=== PATIENT | male | born 1985 | race Caucasian/White ===

== ENCOUNTER 2020-01-28 11:32 | Emergency (ER) | payer OTHER, SELFPAY ==
[2020-01-28 11:34] VITALS: BP 122/84; PULSE 83; RESP 22; TEMP 38.1; O2SAT 98; BMI 22.4
--- NOTE | 2020-01-28 11:45 | XR_ITS ---
PROCEDURE: XR CHEST 2V CLINICAL HISTORY: FEVER Smoker, sore throat COMPARISON: No exams were available for comparison FINDINGS: The cardiomediastinal silhouette and pulmonary vascularity are within normal limits. The lungs are clear without infiltrates, suspicious nodules, or pleural effusions. There is a mild pectus deformity. No acute bony findings. IMPRESSION: No acute findings. Dictated by: Robby Orosco MD 01/28/2020 12:54 Electronically signed by Robby Orosco MD in [place] 01/28/2020 12:54
--- NOTE | 2020-01-28 11:56 | PC.NURSE ---
Pt returned from rad.
--- NOTE | 2020-01-28 11:56 | PC.NURSE ---
PT HAS RETURNED FROM XRAY AT THIS TIME. LAB STAFF AT BEDSIDE.
[2020-01-28 12:06] LABS: Adenovirus,PCR Not Detected (NotDetected); Bordetella Pertussis Not Detected (NotDetected); Chlamydophila Pneumoniae, PCR Not Detected (NotDetected); Coronavirus 229E Not Detected (NotDetected); Coronavirus NL63 Not Detected (NotDetected); Coronavirus OC43 Not Detected (NotDetected); Coronovirus HKU1,PCR Not Detected (NotDetected); Human Metapneumovirus Not Detected (NotDetected); Influenza A, PCR Not Detected (NotDetected); Influenza AH1, 2009 Not Detected (NotDetected); Influenza AH1, PCR Not Detected (NotDetected); Influenza AH3,PCR Not Detected (NotDetected); Influenza B, PCR Not Detected (NotDetected); Mycoplasma Pneumoniae, PCR Not Detected (NotDetected); Parainfluenza 1, PCR Not Detected (NotDetected); Parainfluenza 2, PCR Not Detected (NotDetected); Parainfluenza 3, PCR Not Detected (NotDetected); Parainfluenza 4, PCR Not Detected (NotDetected); Respiratory Syncytial Virus Not Detected (NotDetected); Rhinovirus/Enterovirus Not Detected (NotDetected)
[2020-01-28 12:20] LABS: Strep Scrn Group A (Rapid) Negative (Negative)
--- NOTE | 2020-01-28 12:59 | PC.NURSE ---
UPDATED PT ON WHEN RESULTS FOR URP, PT REQUESTED BLANKET AND LIGHTS TO BE TURNED FF. NO NEEDS AT THIS TIME
--- NOTE | 2020-01-28 13:51 | PC.NURSE ---
Dr Obrien calling the [facility] nurse at this time.
--- NOTE | 2020-01-28 14:02 | HMH.EDFEV ---
ED Disposition Clinical Impression: Fever of unknown origin, Viral infection, Exposure to SARS-associated coronavirus Disposition: Home, Self-Care Condition on Discharge: Good Instructions: DI for Fever (Symptom) -- Adult Referrals: Provider,Referral, MD [Primary Care Provider] - - Critical Care Critical Care Time: No Attestation: On 01/28/20, the high probability of a clinically significant, sudden or life threatening deterioration of the following system(s) required my full and direct attention, intervention and personal management. The time I documented below is in addition to time spent performing reported procedures but includes the following listed in this critical care notation. Medical Decision Making - Medical Records Medical records reviewed: Yes: I reviewed the patient's medical records. - Shahzad Inquiry Pt receiving controlled substance: No Vital Signs: 01/28/20 11:34 Temperature 100.5 F H Temperature Source Oral Pulse Rate [Right] 83 Respiratory Rate 22 Blood Pressure [Right Arm] 122/84 Blood Pressure Mean [Right Arm] 96 02 Sat by Pulse Oximetry 98 - Lab Data Lab results reviewed: Yes: I reviewed the patient's lab results. Lab Results 01/28/20 11:47: Group A Strep Rapid Negative 01/28/20 11:50: Chlamy pneumoniae PCR Not detected, Adenovirus (PCR) Not detected, B. pertussis DNA (PCR) Not detected, Coronavirus OC43 (PCR) Not detected, Coronavirus HKU1 (PCR) Not detected, Coronavirus 229E (PCR) Not detected, Coronavirus NL63 (PCR) Not detected, Human Metapneumovir PCR Not detected, Influenza A (H1) PCR Not detected, Influ A (H1N1/09) PCR Not detected, Influenza A (H3) PCR Not detected, Influenza Type A (PCR) Not detected, Influenza Type B (PCR) Not detected, M. pneumoniae (PCR) Not detected, Parainfluenza 1 (PCR) Not detected, Parainfluenza 2 (PCR) Not detected, Parainfluenza 3 (PCR) Not detected, Parainfluenza 4 (PCR) Not detected, RSV (PCR) Not detected, Entero/Rhino (PCR) Not detected Orders (Tests/Meds): ED MEDICATIONS Discontinued Medications Generic Name Dose Route Start Last Admin Trade Name Freq PRN Reason Stop Dose Admin Acetaminophen 1,000 mg 01/28/20 12:02 04/22/20 12:03 Tylenol 500mg Tablet PO 01/28/20 12:03 1,000 mg ONCE ONE Administration Ondansetron HCl 4 mg 01/28/20 12:02 01/28/20 12:03 Zofran 4mg Odt SL 01/28/20 12:03 4 mg ONCE ONE Administration ORDERS Category Date Time Status Strep Screen Confirmation Stat Micro 01/28/20 11:47 Received Medical Decision Narrative: Patient's upper respiratory panel came back negative and a strep also came back negative as well given the fact he has been out in the community and had close contact with a previous positive and now is exhibiting symptoms he warrants SARS-CoV-2 testing. Fever HPI - General Chief Complaint: Fever Stated Complaint: high temp, vomiting, sore throat headache Time Seen by Provider: 01/28/20 14:02 Mode of Arrival: Ambulatory Source of Information: Patient Limitations: No Limitations Description of Symptoms (Recalled from ER Triage Doc. by RN): C/O FEVER, BODY ACHES, SORE THROAT AND VOMITING FOR 3 DAYS. - History of Present Illness HPI Narrative: 34-year-old male presents to the ED with a 3-day onset of malaise, fatigue, arthralgias, myalgias, headache, sore throat, loose stools, nausea and mild cough. Patient states that he has been out over the last 3 to 4 weeks going to local stores and to local restaurants picking up food. He states he thought he had a come close contact with some that the test positive when he was picking up food from a local pizza restaurant. He said he knew the patient knew the individual and then he found out on Facebook that 3 days later he had tested positive earlier that day. Patient denies any overt shortness of breath. - Related Data Home Medications Medication Instructions Recorded Confirmed buprenorphine 8 mg-naloxone 2 m
--- NOTE | 2020-01-28 14:20 | PC.NURSE ---
Lab at bedside
[2020-01-28 14:44] VITALS: BP 118/87; PULSE 89; RESP 18; TEMP 37.7; O2SAT 97
[2020-01-29 08:29] LABS: Covid-19 Nasal PCR Sendout Lex NOT DETECTED
--- NOTE | 2020-01-29 11:03 | PC.NURSE ---
notified patient of negative COVID 19 results.
== END 2020-01-28 14:45 | disposition home or self-care (01) ==
PROVIDERS: Emergency Provider Family Medicine
DX: B34.9 Viral infection, unspecified (principal); Z20.828 Contact with and (suspected) exposure to other viral communicable diseases; F17.210 Nicotine dependence, cigarettes, uncomplicated
CPT/HCPCS: 71046; 87430; 87486; 87581; 87633; 87798; 99283; U0003

== ENCOUNTER → 2020-05-16 19:52 | Outpatient (CLI) | payer OTHER, SELFPAY | PROVIDERS: Visit Provider Nurse Practitioner Family | DX: Z03.818 Encounter for observation for suspected exposure to other biological agents ruled out (principal) | CPT/HCPCS: U0003 ==

== ENCOUNTER 2020-10-29 15:54 | Emergency (ER) | payer OTHER, SELFPAY ==
[2020-10-29 16:05] VITALS: BP 123/74; PULSE 69; RESP 17; TEMP 36.8; O2SAT 98; BMI 19.9
--- NOTE | 2020-10-29 16:27 | HMH.EDUTC ---
[facility] [place] Clinical Impression: Exposure to COVID-19 virus Disposition: Home, Self-Care Condition on Discharge: Good Instructions: Preventing the Spread of Coronavirus Discharge Instructions Referrals: PCP,No [Primary Care Provider] - Time of Disposition: 16:28 Medical Decision Making - Shahzad Inquiry Pt receiving controlled substance: No Vital Signs: 10/29/20 16:05 Temperature 98.2 F Temperature Source Oral Pulse Rate [Right Brachial] 69 Respiratory Rate 17 Blood Pressure [Right Arm] 123/74 Blood Pressure Mean [Right Arm] 90 Blood Pressure Source [Right Arm] Automatic Cuff Blood Pressure Position [Right Arm] Sitting 02 Sat by Pulse Oximetry 98 Oxygen Delivery Method Room Air Orders (Tests/Meds): ORDERS Category Date Time Status Covid-[address] Nasal PCR ([facility]) Routine Lab 10/29/20 16:10 Received [facility] [place] - General Stated complaint: wants Covid-19 test has been exposed Time Seen by Provider: 10/29/20 16:27 Mode of Arrival: Ambulatory Source of Information: Patient Limitations: No Limitations Description of Symptoms (Recalled from Triage Doc. by RN): COVID TEST D/T EXPOSURE. C/O FATIGUE HEENT Symptoms (Recalled from RN notes): No Resp Symptoms (Recalled from RN notes): No Skin Symptoms (Recalled from RN notes): No MS Symptoms (Recalled from RN notes): No Functional Status (Recalled from RN notes): WNL - History of Present Illness Provider Complaint: Has been tired for a few days and now girlfriend has symptoms concerning for COVID19. Would like to get tested. No fever, body aches, chills, SOA. Onset (ago): day(s) (3) Relieving factors: none Exacerbating factors: none Associated symptoms: denies other symptoms Treatments prior to arrival: none - Related Data Home Medications Medication Instructions Recorded Confirmed buprenorphine 8 mg-naloxone 2 mg 2 film BUCCAL DAILY 09/03/19 09/03/19 sublingual film Previous Rx's Medication Instructions Recorded polyethylene glycol 3350 17 17 g PO DAILY PRN #119 g 03/24/19 gram/dose oral powder Allergies Allergy/AdvReac Type Severity Reaction Status Date / Time No Known Allergies Allergy Verified 09/03/19 16:40 - Worker's Comp Is this a Worker's Comp case?: No [facility] History - Hepatitis A Screen Drug use history?: No High risk sexual behaviors?: No History of sexually transmitted infection?: No Currently employed?: No Childcare worker?: No Do you have indoor plumbing?: Yes Do you have electricity?: Yes Attestation statement:: This patient has been screened for Hepatitis A risk factors. I have reviewed the patient's past medical history: Yes Medical History: Denies:: Cancer, Diabetes Mellitus Type 1, Diabetes Mellitus Type 2, MRSA Other Surgeries: Yes: No Previous Surgery Amputation: No Fractures: No Comment: Rib surgery. bilateral inguinal hernia repair - Social History Smoking Status: Current every day smoker Tobacco Type: cigarettes # Packs/Day (cigarettes): 1 Alcohol Intake: never Substance Use Type: former substance user, methamphetamine Occupational Status: employed Housing: house Household Members: spouse, children Family Hx:: No significant family history ROS Obtained: Yes All systems reviewed & no additional complaints - Constitutional Constitutional: Reports fatigue, Reports malaise Physical Exam - General General appearance: alert, in no apparent distress - Head Head exam: normocephalic - Eye Eye exam: Present: PERRL - ENT ENT exam: Present: normal oropharynx - Neck Neck exam: Present: full ROM - Respiratory Respiratory exam: Present: normal lung sounds bilaterally - Cardiovascular Cardiovascular exam: Present: regular rate, normal rhythm - Neurological Exam Neurological exam: Present: alert, oriented X3 - Psychiatric Psychiatric exam: Present: normal affect, normal mood - Skin Skin exam: Present: warm, dry, intact
[2020-10-29 16:34] VITALS: BP 123/74; PULSE 69; RESP 17; TEMP 36.8; O2SAT 98
== END 2020-10-29 16:37 | disposition home or self-care (01) ==
PROVIDERS: Emergency Provider Physician Assistant
DX: Z20.822 Contact with and (suspected) exposure to COVID-19 (principal); R53.1 Weakness; F17.210 Nicotine dependence, cigarettes, uncomplicated
CPT/HCPCS: 99202; G0463; U0003

== ENCOUNTER → 2021-05-27 20:00 | Outpatient (CLI) | payer OTHER, SELFPAY | PROVIDERS: Visit Provider Nurse Practitioner Family | DX: Z20.822 Contact with and (suspected) exposure to COVID-19 (principal) | CPT/HCPCS: U0003 ==

== ENCOUNTER → 2021-06-06 23:21 | Outpatient (CLI) | payer OTHER, SELFPAY ==
--- NOTE | 2021-06-07 11:37 | PC.NURSE ---
Notified pt of positive results
== END ==
PROVIDERS: Visit Provider Nurse Practitioner Family
DX: Z11.52 Encounter for screening for COVID-19 (principal); U07.1 COVID-19
CPT/HCPCS: U0003

== ENCOUNTER 2022-01-31 04:51 | Emergency (ER) | payer OTHER, SELFPAY ==
--- NOTE | 2022-01-31 04:50 | ECG_ITS ---
APPROVED REPORT Exam: Resting ECG HR:72 bpm ECG Measurements Heart Rate 72 AXES TX 122 P 67 QRSd 98 QRS 63 QT 376 T 63 QTc 400 Conclusion SINUS RHYTHM INCOMPLETE RIGHT BUNDLE BRANCH BLOCK [90+ ms QRS DURATION, TERMINAL R IN V1/V2, 40+ ms S IN I/aVL/V4/V5/V6] BORDERLINE ECG UNCONFIRMED REPORT Electronically signed by : Margarito Iglesias MD 02/02/2022 08:05:44
[2022-01-31 04:52] VITALS: BP 163/108; PULSE 85; RESP 17; TEMP 36.8; O2SAT 99; BMI 22.4
[2022-01-31 04:55] VITALS: BMI 22.4
--- NOTE | 2022-01-31 04:56 | XR_ITS ---
PROCEDURE INFORMATION: Exam: XR Chest Exam date and time: 01/31/2022 4:59 AM Age: 36 years old Clinical indication: Sternal or substernal pain; Additional info: Cp TECHNIQUE: Imaging protocol: XR of the chest. Views: 2 views. COMPARISON: CR XR CHEST 2V 01/28/2020 11:45 AM FINDINGS: Lungs: Hyperinflated. No consolidation. Pleural spaces: Unremarkable. No pleural effusion. No pneumothorax. Heart/Mediastinum: Unremarkable. No cardiomegaly. Bones/joints: Unremarkable. IMPRESSION: No acute findings.
[2022-01-31 05:08] LABS: Basophils # 0.1 K/mm3 (0-0.2); Basophils % 1.7 % (0.1-2.0); Eosinophils # 0.1 K/mm3 (0.0-0.4); Eosinophils % 1.6 % (0.1-12.0); Hematocrit 46.2 % (42.0-52.0); Hemoglobin 16.2 g/dL (14.1-18.0); Lymphocytes # 2.4 K/mm3 (0.7-4.5); Lymphocytes % 38.6 % (10-50); Mean Corpuscular Hemoglobin 34.6 pg (27.0-31.2); Mean Corpuscular Volume 98.8 fl (80-94); Monocytes # 0.4 K/mm3 (0.1-1.0); Monocytes % 5.8 % (1.7-9.3); Neutrophils # 3.3 K/mm3 (1.8-7.8); Neutrophils % 52.2 % (37.0-80.0); Platelet Count 211 K/mm3 (142-424); Red Blood Count 4.68 M/mm3 (4.60-6.20); Red Cell Distribution Width 12.6 % (11.5-17.5); White Blood Count 6.3 K/mm3 (4.8-10.8)
[2022-01-31 05:13] LABS: Alanine Aminotransferase 35 U/L (12-78); Albumin Level 4.7 g/dl (3.5-5.0); Alkaline Phosphatase 72 U/L (38-126); Anion Gap 10.6 mEq/L (5-15); Aspartate Amino Transferase 47 U/L (17-59); Bilirubin,Direct 0.2 mg/dl (0.0-0.4); Bilirubin,Indirect 0.3 mg/dL (0.0-0.9); Bilirubin,Total 0.5 mg/dl (0.2-1.3); Bilirubin,Unconjugated 0.3 mg/dL (0.0-1.1); Blood Urea Nitrogen 22 mg/dl (9-20); Calcium 9.2 mg/dl (8.4-10.2); Carbon Dioxide 30 mmol/L (22.0-30.0); Chloride 105 mmol/L (98-107); Creatinine Clearance Estimated 126 mL/min (50-200); Estimated Glomerular Filt Rate 128 ml/min (>60); GFR (African American) 154 ML/MIN (>60); Glucose 124 mg/dl (74-100); Potassium 3.6 mmoL/L (3.5-5.1); Sodium 142 mmol/L (136-145); Total Protein,Serum 7.5 g/dl (6.3-8.2)
[2022-01-31 05:18] LABS: C-Reactive Protein 9.4 mg/L (0-4)
[2022-01-31 05:30] VITALS: BP 117/78; PULSE 56; RESP 12; O2SAT 98
[2022-01-31 05:32] LABS: Procalcitonin 0.063 ng/mL (0.0-2.0)
[2022-01-31 05:42] LABS: Erythrocyte Sedimentation Rate 8 mm/hr (0-15); Troponin I < 0.01 ng/ml (0.00-0.034)
--- NOTE | 2022-01-31 05:45 | HMH.EDCP ---
ED Disposition Clinical Impression: Atypical chest pain Disposition: Home, Self-Care Condition on Discharge: Good Instructions: DI for Atypical Chest Pain Additional Instructions: see pcp for follow up Referrals: Provider,Referral, [Primary Care Provider] - - Critical Care Critical Care Time: No Attestation: On 01/31/22, the high probability of a clinically significant, sudden or life threatening deterioration of the following system(s) required my full and direct attention, intervention and personal management. The time I documented below is in addition to time spent performing reported procedures but includes the following listed in this critical care notation. Medical Decision Making - Medical Records Medical records reviewed: Yes: I reviewed the patient's medical records. - Shahzad Inquiry Pt receiving controlled substance: No Vital Signs: 01/31/22 04:52 01/31/22 05:30 01/31/22 06:00 Temperature 98.3 F Temperature Source Oral Pulse Rate 56 L 58 L Pulse Rate [Right] 85 Respiratory Rate 17 12 14 Blood Pressure 117/78 120/84 Blood Pressure [Right Arm] 163/108 H Blood Pressure Mean [Right Arm] 126 Blood Pressure Source [Right Arm] Automatic Cuff 02 Sat by Pulse Oximetry 99 98 98 Oxygen Delivery Method Room Air Room Air Room Air 01/31/22 06:30 01/31/22 07:00 Temperature Temperature Source Pulse Rate 54 L 54 L Pulse Rate [Right] Respiratory Rate 10 L 12 Blood Pressure 112/72 110/82 Blood Pressure [Right Arm] Blood Pressure Mean [Right Arm] Blood Pressure Source [Right Arm] 02 Sat by Pulse Oximetry 98 98 Oxygen Delivery Method Room Air - Lab Data Lab results reviewed: Yes: I reviewed the patient's lab results. Lab Results 01/31/22 04:54: WBC 6.3, RBC 4.68, Hgb 16.2, Hct 46.2, MCV 98.8 H, MCH 34.6 H, MCHC 35.0, RDW 12.6, Plt Count 211, MPV 8.0, Neut % (Auto) 52.2, Lymph % (Auto) 38.6, [place] % (Auto) 5.8, Eos % (Auto) 1.6, Baso % (Auto) 1.7, Neut # (Auto) 3.3, Lymph # (Auto) 2.4, [place] # (Auto) 0.4, Eos # (Auto) 0.1, Baso # (Auto) 0.1, ESR 8 01/31/22 04:54: Sodium 142, Potassium 3.6, Chloride 105, Carbon Dioxide 30, Anion Gap 10.6, BUN 22 H, Creatinine 0.70, Estimated Creat Clear 126, Estimated GFR 128, Est GFR ( Amer) 154, Glucose 124 H, Calcium 9.2, Magnesium 2.0, Total Bilirubin 0.5, Direct Bilirubin 0.2, Conjugated Bilirubin 0.0, Indirect Bilirubin 0.3, Unconjugated Bilirubin 0.3, AST 47, ALT 35, Alkaline Phosphatase 72, Troponin I < 0.01, C-Reactive Protein 9.4 H, Total Protein 7.5, Albumin 4.7, Procalcitonin 0.063 Result diagrams: 01/31/22 04:54 01/31/22 04:54 Orders (Tests/Meds): ED MEDICATIONS Generic Name Dose Route Start Last Admin Trade Name Freq PRN Reason Stop Dose Admin Sodium Chloride 8 ml 01/31/22 05:38 Sodium Chloride 0.9% 10ml Vial IV 03/02/22 05:37 NEEDED PRN dilute pepcid Discontinued Medications Generic Name Dose Route Start Last Admin Trade Name Freq PRN Reason Stop Dose Admin Aspirin 324 mg 01/31/22 04:56 01/31/22 05:14 Aspirin 81mg Chewable Tablet PO 01/31/22 04:57 324 mg ONCE ONE Administration Famotidine 20 mg 01/31/22 05:38 01/31/22 05:39 Famotidine 20mg/2ml Vial IV 01/31/22 05:39 20 mg ONCE ONE Administration Lactated Ringer's 1,000 mls @ 999 mls/hr 01/31/22 05:00 01/31/22 05:14 Lactated Ringer's 1000 Ml Bag IV 01/31/22 06:00 999 mls/hr .Q1H1M ODMO Administration Metoclopramide HCl 10 mg 01/31/22 05:38 01/31/22 05:39 Metoclopramide Hcl 10mg/2ml Vial IVP 01/31/22 05:39 10 mg ONCE ONE Administration ORDERS Category Date Time Status Troponin I Q3H Lab 01/31/22 08:00 Ordered Troponin I Q3H Lab 01/31/22 11:00 Ordered - ECG Data Tracing #1 Normal Sinus Rhythm: Yes Ischemic changes: non-specific ST-T wave changes - MARTIN Score for Non-Stemi Age of Patient: 30-39 years old Heart Rate: 70-89 bpm Systolic Blood Pressure: 160-199 mmH
[2022-01-31 06:00] VITALS: BP 120/84; PULSE 58; RESP 14; O2SAT 98
[2022-01-31 06:30] VITALS: BP 112/72; PULSE 54; RESP 10; O2SAT 98
[2022-01-31 07:00] VITALS: BP 110/82; PULSE 54; RESP 12; O2SAT 98
[2022-01-31 08:04] VITALS: BP 120/82; PULSE 54; RESP 18; TEMP 36.8; O2SAT 99
== END 2022-01-31 08:07 | disposition home or self-care (01) ==
PROVIDERS: Emergency Provider Emergency Medicine
DX: R07.2 Precordial pain (principal); M54.6 Pain in thoracic spine; R06.02 Shortness of breath; F17.210 Nicotine dependence, cigarettes, uncomplicated; Z82.49 Family history of ischemic heart disease and other diseases of the circulatory system
CPT/HCPCS: 71046; 80048; 80076; 83735; 84145; 84484; 85025; 85651; 86140; 93005; 96361; 96374; 96375; 99285

== ENCOUNTER → 2022-02-27 13:12 | Outpatient (CLI) | payer OTHER, SELFPAY ==
[2022-02-27 19:00] LABS: Basophils % 0.7 % (0.1-2.0); Eosinophils % 0.4 % (0.1-12.0); Hematocrit 44.5 % (42.0-52.0); Hemoglobin 14.8 g/dL (14.1-18.0); Lymphocytes # 1.7 K/mm3 (0.7-4.5); Lymphocytes % 27.3 % (10-50); Mean Corpuscular HGB Conc 33.2 g/dL (31.8-35.4); Mean Corpuscular Hemoglobin 33.1 pg (27.0-31.2); Mean Corpuscular Volume 99.7 fl (80-94); Mean Platelet Volume 9.1 fl (7.4-10.4); Monocytes # 0.2 K/mm3 (0.1-1.0); Monocytes % 3.6 % (1.7-9.3); Neutrophils # 4.3 K/mm3 (1.8-7.8); Platelet Count 313 K/mm3 (142-424); Red Blood Count 4.46 M/mm3 (4.60-6.20); Red Cell Distribution Width 12.8 % (11.5-17.5); White Blood Count 6.3 K/mm3 (4.8-10.8)
[2022-02-27 19:31] LABS: Alanine Aminotransferase 28 U/L (12-78); Albumin Level 4.5 g/dl (3.5-5.0); Albumin/Globulin Ratio 1.8 (1.1-1.8); Alkaline Phosphatase 65 U/L (38-126); Anion Gap 13.4 mEq/L (5-15); Aspartate Amino Transferase 41 U/L (17-59); Blood Urea Nitrogen 13 mg/dl (9-20); Calcium 9.5 mg/dl (8.4-10.2); Carbon Dioxide 30 mmol/L (22.0-30.0); Chloride 102 mmol/L (98-107); Chol/HDL Ratio 2.6 (1-3.5); Cholesterol 160 mg/dl (140-200); Estimated Glomerular Filt Rate 128 ml/min (>60); GFR (African American) 154 ML/MIN (>60); Globulin 2.5 g/dL (1.3-3.2); Glucose 102 mg/dl (74-100); HDL Cholesterol 61 mg/dl (40-60); Potassium 4.4 mmoL/L (3.5-5.1); Sodium 141 mmol/L (136-145); Triglycerides 90 mg/dl (30-150); VLDL Cholesterol 18 mg/dL (0-40)
[2022-02-27 19:34] LABS: Bilirubin,Total < 0.1 mg/dl (0.2-1.3)
[2022-02-27 19:42] LABS: C-Reactive Protein 0.8 mg/L (0-4); Direct LDL Cholesterol 84.49 mg/dL (100-129)
[2022-02-27 19:43] LABS: Erythrocyte Sedimentation Rate 8 mm/hr (0-15)
[2022-02-27 19:49] LABS: 25-OH Vitamin D, Total 38.3 ng/mL (30-100)
[2022-02-27 20:01] LABS: Thyroid Stimulating Hormone 1.75 uIU/mL (0.465-4.68)
[2022-02-27 20:20] LABS: Vitamin B12 584 pg/mL (239-931)
[2022-02-27 22:27] LABS: Ferritin 28.2 ng/ml (17.9-464)
[2022-03-01 09:29] LABS: RA Latex Turbid. 11.3 IU/mL (<14.0)
[2022-03-01 14:24] LABS: Anti-Centromere B Antibodies <0.2 AI (0.0-0.9); Anti-DNA (DS) Ab Qn <1 IU/mL (0-9); Anti-Jo-1 <0.2 AI (0.0-0.9); Anti-Smith Antibody <0.2 AI (0.0-0.9); Antichromatin Antibodies <0.2 AI (0.0-0.9); Antiscleroderma-70 Antibodies <0.2 AI (0.0-0.9); RNP Antibodies <0.2 AI (0.0-0.9); Sjogren's Anti-SS-A <0.2 AI (0.0-0.9); Sjogren's Anti-SS-B <0.2 AI (0.0-0.9)
[2022-03-02 00:08] LABS: Anti-Cyclic Citrullinated Pept 2 units (0-19)
[2022-03-04 20:02] LABS: Hep A Ab, IgM NEGATIVE; Hepatitis B Core Antibody IgM NEGATIVE; Hepatitis B Surface Antigen NEGATIVE; Hepatitis C Antibody <0.1
== END ==
PROVIDERS: PCP Physician Assistant; Visit Provider Physician Assistant
DX: M25.50 Pain in unspecified joint (principal); Z76.89 Persons encountering health services in other specified circumstances
CPT/HCPCS: 80053; 80061; 80074; 82306; 82607; 82728; 84443; 85025; 85651; 86140; 86200; 86225; 86235; 86431

== ENCOUNTER → 2022-04-26 15:55 | Outpatient (CLI) | payer OTHER, SELFPAY ==
[2022-04-26 17:02] LABS: Basophils % 0.4 % (0.1-2.0); Eosinophils # 0.1 K/mm3 (0.0-0.4); Eosinophils % 0.9 % (0.1-12.0); Hematocrit 41.5 % (42.0-52.0); Lymphocytes # 2.3 K/mm3 (0.7-4.5); Lymphocytes % 33.6 % (10-50); Mean Corpuscular HGB Conc 33.9 g/dL (31.8-35.4); Mean Corpuscular Hemoglobin 32.5 pg (27.0-31.2); Mean Corpuscular Volume 95.9 fl (80-94); Mean Platelet Volume 7.6 fl (7.4-10.4); Monocytes # 0.3 K/mm3 (0.1-1.0); Monocytes % 4.7 % (1.7-9.3); Neutrophils # 4.1 K/mm3 (1.8-7.8); Neutrophils % 60.3 % (37.0-80.0); Platelet Count 241 K/mm3 (142-424); Red Blood Count 4.32 M/mm3 (4.60-6.20); Red Cell Distribution Width 12.2 % (11.5-17.5); White Blood Count 6.9 K/mm3 (4.8-10.8)
[2022-04-26 17:03] LABS: Chloride 105 mmol/L (98-107); Potassium 3.9 mmoL/L (3.5-5.1); Sodium 139 mmol/L (136-145)
[2022-04-26 17:05] LABS: Alanine Aminotransferase 26 U/L (12-78); Anion Gap 10.9 mEq/L (5-15); Aspartate Amino Transferase 39 U/L (17-59); Bilirubin,Unconjugated 0.2 mg/dL (0.0-1.1); Blood Urea Nitrogen 18 mg/dl (9-20); Carbon Dioxide 27 mmol/L (22.0-30.0); Estimated Glomerular Filt Rate 152 ml/min (>60); GFR (African American) 184 ML/MIN (>60)
[2022-04-26 17:06] LABS: Albumin Level 4.8 g/dl (3.5-5.0); Alkaline Phosphatase 56 U/L (38-126); Bilirubin,Direct 0.1 mg/dl (0.0-0.4); Bilirubin,Indirect 0.2 mg/dL (0.0-0.9); Bilirubin,Total 0.3 mg/dl (0.2-1.3); Calcium 9.8 mg/dl (8.4-10.2); Glucose 107 mg/dl (74-100); Total Protein,Serum 7.2 g/dl (6.3-8.2)
[2022-04-28 08:15] LABS: HIV Screen 4th Generation wRfx Non Reactive (Non Reactive)
[2022-04-29 23:23] LABS: Hep A Ab, IgM Negative; Hepatitis B Core Antibody IgM Negative; Hepatitis B Surface Antigen Negative; Hepatitis C Antibody <0.1
== END ==
PROVIDERS: PCP Physician Assistant; Visit Provider Family Medicine Addiction Medicine
DX: F11.20 Opioid dependence, uncomplicated (principal); Z11.4 Encounter for screening for human immunodeficiency virus [HIV]
CPT/HCPCS: 36415; 80048; 80074; 80076; 85025; 86703; G0432

== ENCOUNTER 2025-04-20 15:02 | Emergency (ER) | payer SELFPAY ==
[2025-04-20 16:02] VITALS: BP 137/95; PULSE 70; O2SAT 100
[2025-04-20 16:03] LABS: Microscopic, Urine URINE MICROSCOPIC (MICROSCOPIC)
[2025-04-20 16:05] LABS: Bilirubin,Urine Negative (Negative); Color,Urine YELLOW (Yellow); Glucose,Urine (UA) Negative (Negative); Ketones,Urine TRACE (Negative); Leukocyte Esterase,Urine Negative (Negative); PH,Urine 5.5 (5.0-8.5); Protein,Urine TRACE (Negative); Specific Gravity, Urine >= 1.030 (1.005-1.030); Urobilinogen,Urine 0.2 EU/dl (0.2)
--- OUTSIDE RECORDS SUMMARY | 2025-04-20 16:06 | XMS_ITS | Clinical Summary ---
Author Organization [facility] Address [address] [place] [id number] Phone [email or web address] Care Team Providers Care Advertising Strategist Name Role Phone Unavailable Primary Care Provider Unavailabl e Allergies No known active allergies Medications buprenorphine-n aloxone (SUBOXONE) 8-2 MG per SL tablet DISSOLVE 2 TABLETS UNDER THE TONGUE ONCE DAILY 05/21/2021 Active Active Problems No known active problems Social History Tobacco Use Types Packs/Day Years Used Date Smoking Tobacco: Every Day Smokeless Tobacco: Never Intimate Partner Violence Answer Date R ecorded Insults You Not on file 01/21/2021 Threatens You Not on file 01/21/2021 Screams at You Not on file 01/21/2021 Physically Hurt Not on file 01/21/2021 Intimate Partner Violence Score Not on file 01/21/2021 Stress Answer Date Recorded Stress in your Life Not on file 08/13/2024 Dealing with Stress 3 08/13/2024 Sex and Gender Information Value Date Recorded Sex Assigned at Not on file Legal Sex Male 5:37 AM CDT Gender Identity Not on file Sexual Orientation Not on file Last Filed Vital Signs Vital Sign Reading Time Taken Comments Blood Pressure - - Pulse 66 05/24/2020 8:36 AM EDT Temperature 37.2 C (99 F) 11/15/2021 11:18 AM EST Respiratory Rate - - Oxygen Saturation 96% 05/24/2020 8:36 AM EDT Inhaled Oxygen Concentration - - Weight - - Height - - Body Mass Index - - Plan of Treatment Health Maintenance Due Date Last Done Comments Dental Cleaning/Exam 1985 HIV Screening 1985 Hepatitis C Screening 1985 Hepatitis B Immunization (2 of 3 - 3-dose series) 01/20/1998 12/23/1997 Annual Preventive Exam 2003 Hep B Infection Screening - Triple Screen 2003 Pneumococcal: Ped (0 to 5 Yrs) and At-Risk Member (6 to 64 Yrs) (1 of 2 - PCV) 2004 Tetanus Diphtheria and Pertussis Immunization (2 - Tdap) 01/23/2007 01/22/2007, 12/23/1997 Covid-19 Immunization (3 - 2023- season) 2024 06/03/2021, 05/06/2021 Influenza Immunization (#1) 2025 HIB Immunization Aged Out No longer e ligible based on patient's age to complete this topic HPV Immunization Aged Out No longer e ligible based on patient's age to complete this topic Hepatitis A Immunization Aged Out No longer eligible based on patient's age to complete this topic Polio Immunization Aged Out No longer eligible based on patient's age to complete this topic Varicella Immunization Aged Out No lo nger eligible based on patient's age to complete this topic Insurance OPT OUT NO COPAY NB
--- OUTSIDE RECORDS SUMMARY | 2025-04-20 16:06 | XMS_ITS | Clinical Summary ---
Author Organization Healthcare Address [address] [place] [address] Care Team Providers Care Guest Services Director Name Role Phone Michelle Clark APRN Primary Care Provider Allergies No known active allergies Medications buprenorphine-n aloxone (Suboxone) 8-2 MG SL tablet DISSOLVE 1 & 3/4 TABLET UNDER THE TONGUE ONCE DAILY 12/23/2022 Active Active Problems Problem Noted Date Diagnosed Date Lower back pain 01/02/2015 Chest wall injury 01/02/2015 Immunizations Immunization Administration Dates Next Due Hep B, Adolescent or Pediatric 12/23/1997 Hep B, Adolescent/High Risk Infant 12/23/1997 MMR 12/23/1997 TD (adult), 2 Lf tetanus tox oid, preservative free, adsorbed 01/22/2007,12/23/1997 Family History Medical History Relation Name Comments No Known Problems Father No Known Problems Mother Arthritis Other Relation Name Status Comments Father Mother Other Social History Tobacco Use Types Packs/Day Years Used Date Smoking Tobacco: Every Day Cigarettes 1 21.5 Started: 2003 Smokeless Tobacco: Never Tobacco Cessation:Ready to Q uit: Not Asked; Counseling Given: Not Answered Alcohol Use Standard Drinks/Week Comments Yes 0 (1 standard drink = 0.6 oz pure alcohol) Alcoholic Drinks/day: Social alcohol use PHQ-2 Answer Date Recorded Patient Health Questionnaire-2 Score 0 01/15/2023 PHQ-2A Answer Date Recorded Patient Health Questionnaire-2 Score 0 01/15/2023 Sex and Gender Information Value Date Recorded Sex Assigned at Not on file Legal Sex Male 6:36 PM EDT Gender Identity Not on file Sexual Orientation Not on file Last Filed Vital Signs Vital Sign Reading Time Taken Comments Blood Pressure 124/74 01/15/2023 12:43 PM EDT Pulse 88 01/15/2023 12:43 PM EDT Temperature 36.7 C (98 F) 01/15/2023 12:43 PM EDT Respiratory Rate 18 01/15/2023 12:43 PM EDT Oxygen Saturation 99% 01/15/2023 12:43 PM EDT Inhaled Oxygen Concentration - - Weight 58 kg (127 lb 13.9 oz) 01/15/2023 12:43 P M EDT Height 165.1 cm (5' 5 ) 01/15/2023 12:43 PM EDT Body Mass Index 21.28 01/15/2023 12:43 PM EDT Plan of Treatment Health Maintenance Due Date Last Done Comments [facility]-HIV Screening 1985 [facility]-Hepatitis C Screening 1985 [facility]-Infant/Child/Adol SDOH Screenings 1985 [facility]-Hepatitis B Vaccines (2 of 3 - 3-dose series) 01/20/1998 12/23/1997, 12/23/1997 [facility]-Varicella Vaccines (1 of 2 - 13+ 2-dose series) 1998 HPV Vaccines (1 - Male 3-dose series) 2000 [facility]- SDOH Screenings 2003 [facility]-Adult SDOH Screenings 2003 [facility]-DTaP,Tdap,and Td Vaccines (2 - Tdap) 01/23/2007 01/22/2007, 12/23/1997 [facility]-Depression Screening 01/16/2024 01/15/2023 [id number] Vaccine (3 - season) 2024 06/03/2021, 05/06/2021 [facility]-Influenza Vaccine (#1) 2025 [facility]-Zoster Vaccines (1 of 2) 2035 [facility]-HIB Vaccines Aged Out No longer e ligible based on patient's age to complete this topic [facility]-Hepatitis A Vaccines Aged Out No longer eligible based on patient's age to complete this topic [facility]-IPV Vaccines Aged Out No longer e ligible based on patient's age to complete this topic [facility]-Pneumococcal Vaccine: Pediatrics (0 to 5 Years) and At-Risk Patients (6 to 49 Years) Aged Out No longer eligible b ased on patient's age to complete this topic [facility]-Rotavirus Vaccines Aged Out No lo nger eligible based on patient's age to complete this topic Insurance [employer] Care Teams Guest Services Director Relationship Specialty Start Date End Date Michelle Clark, ELIDA [address] [place] [phone] PCP - General Family Medicine 01/15/23
--- NOTE | 2025-04-20 16:08 | CT_ITS ---
PROCEDURE INFORMATION: Exam: CT Abdomen And Pelvis With Contrast Exam date and time: 04/20/2025 5:25 PM Age: 39 years old Clinical indication: Pain; Other: L groin; Additional info: L groin pain TECHNIQUE: Imaging protocol: Computed tomography of the abdomen and pelvis with contrast. Radiation optimization: All CT scans at this facility use at least one of these dose optimization techniques: automated exposure control; mA and/or kV adjustment per patient size (includes targeted exams where dose is matched to clinical indication); or iterative reconstruction. Contrast material: ISOVUE; Contrast volume: 75 ml; Contrast route: IV; COMPARISON: CR XR CHEST 2V 01/31/2022 4:59 AM FINDINGS: Lungs: The visualized lung bases demonstrate no focal infiltrates. Liver: The liver appears within normal limits. Gallbladder and biliary ducts: The gallbladder is normal. There is no evidence of biliary ductal dilation. Pancreas: The pancreas is normal. Spleen: The spleen is normal. Adrenal glands: The adrenal glands appear within normal limits. Kidneys and ureters: The kidneys are normal. Stomach and bowel: Unremarkable. No obstruction. No mucosal thickening. Appendix: No evidence of appendicitis. Intraperitoneal space: No free air. No evidence for focal fluid collection or ascites. No evidence for omental thickening. Vasculature: Mild atherosclerotic calcifications of the aorta. 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 Lymph nodes: Unremarkable. No pathologically enlarged lymph nodes are identified. Urinary bladder: The bladder appears within normal limits. No wall thickening. Reproductive: Unremarkable as visualized. Bones/joints: This finding can be seen incidentally but can also be associated with median arcuate ligament syndrome. Best seen on sagittal image 48. Correlate clinically. Soft tissues: The visualize subcutaneous soft tissues and abdominal wall and flank wall appear unremarkable. IMPRESSION: 1. 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 This finding can be seen incidentally but can also be associated with median arcuate ligament syndrome. Best seen on sagittal image 48. Correlate clinically. 2. No anatomic abnormality identified to explain symptoms of left groin pain.
--- NOTE | 2025-04-20 16:11 | ED_ITS ---
Discharge Plan Disposition Patient Disposition: Home, Self-Care Condition: Good Prescriptions Prescriptions: New polyethylene glycol 3350 [Miralax] 17 gram/dose powder 17 g PO DAILY Qty: 510 0RF No Action buprenorphine-naloxone [Suboxone] 2-0.5 mg film 1 film BUCCAL DAILY Rx Instructions: place 1 strip/tab under (each) side of tongue Referrals Follow up/Referrals: Sharif Cerda MD [Staff Physician, General Surgery] - See instructions Provider,MD Kristine [Primary Care Provider, Medical] - See instructions José Miguel Kelsey MD [Staff Physician, General Surgery] - See instructions Activity Restrictions/Add. Instructions Additional Instructions/Restrictions: You were evaluated in the emergency department today. At this time, based on your history and symptoms, we feel you likely have a hernia. Please follow-up closely outpatient with general surgery. Call their office to schedule an appointment. Take Tylenol and ibuprofen as needed for pain. Try to avoid heavy lifting and excessive straining if possible. I am prescribing you MiraLAX to keep stools soft that way you avoid excessive straining. Your CT scan also shows thickening of the origin of your celiac trunk, which can sometimes be a sign of median arcuate ligament syndrome. This syndrome, you can have decreased blood flow to your intestines which can cause abdominal pain, especially after eating, and other issues. I also would recommend following up with general surgery for recommendations regarding this. Return to the emergency department for new or worsening symptoms. Clinical Impressions Clinical Impression: Left groin hernia, Median arcuate ligament syndrome Stand Alone Forms Stand Alone Forms: Work/School Release Instructions Patient Instructions: DI for Groin Hernia, DI for Acute Pain -- Adult Print Language Print Language: Hungarian Discharge ED Provider: Yaa Francois General Adult HPI General Chief complaint: PAIN Stated complaint: Knot left groin area with pain Time Seen by Provider: 04/20/25 16:04 History of Present Illness HPI narrative: This patient is a 39-year-old male with a history of appear dependence on Suboxone presenting to the emergency department for evaluation with concern for left groin pain. Patient states that for the last couple of days, he has noticed pain in his left groin whenever he strains to lift anything, coughs, sneezes, and sometimes even randomly. He states that he notices a bulge in this area, but then it will go away. He denies any fevers, nausea, vomit, changes bowel movements, dysuria, skin lesions or rashes, testicular pain or swelling. Related Data Home Medications ?Medication ?Instructions ?Recorded ?Confirmed buprenorphine 2 mg-naloxone 0.5 mg 1 film buccal DAILY addiction 05/27/21 02/27/22 sublingual film (Suboxone) Previous Rx's ?Medication ?Instructions ?Recorded polyethylene glycol 3350 17 17 g PO DAILY #510 grams 0 04/20/25 gram/dose oral powder (Miralax) Allergies Allergy/AdvReac Type Severity Reaction Status Date / Time No Known Allergies Allergy Verified 02/27/22 13:21 [facility] Disclaimer: The information contained in this section may have been updated after the patient was seen, as this information can be updated by other users. Social History Smoking Status: Former smoker tobacco type: cigarettes packs per day: 1 and e- cigarettes alcohol intake: never substance use type: former substance user and methamphetamine current occupational status: employed Travel in the last 8 weeks?: None household members: spouse and children housing: house Have you lived/traveled outside [place] in past 30 days?: No Contact w/someone who lives/traveled outside US past 30 days?: No Exposure to someone with infectious disease in past 14 days?: No Do you have a fever (greater than 100.4 F or 38 C)?: No Have you tested positive for COVID-19?: No Exposed to someone with COVID-19 in past 14 days?: No Do you have a sore throat?: No Do you have a cough?: No Do you have any weakness?: No Do you have any diarrhea?: No Are you experiencing any unusual bleeding?: No Do you have any muscle aches/pain?: No Do you have any abdominal pain?: No Are you experiencing loss of taste or smell?: No Other Medical History Have you received the Flu Vaccine for this season: No Have you received the Pneumonia Vaccine: No ROS Obtained: Yes All systems reviewed & no additional complaints except as documented Physical Exam General General appearance: alert and in no apparent distress Head Head exam: atraumatic and normocephalic Eye Eye exam: Present normal appearance, PERRL and EOMI ENT ENT exam: Present normal exam, normal oropharynx, mucous membranes moist and normal external ear exam Neck Neck exam: Present normal inspection, full ROM and trachea midline; Absent tenderness Chest Chest inspection: Present normal inspection and symmetric chest wall rise; Absent tenderness Respiratory Respiratory exam: Present normal lung sounds bilaterally; Absent respiratory distress, wheezes, stridor or accessory muscle use Cardiovascular Cardiovascular exam: Present regular rate and normal rhythm Abdominal Exam Abdominal exam: Present soft and tenderness; Absent distention or guarding Expanded Exam Male Image: 2 1. Area of tenderness and bulge, though there is no bulging at this time. No appreciable hernia here at rest, no palpable defect Extremities Exam Extremities exam: Present normal inspection, full ROM and normal capillary refill; Absent tenderness or edema Back Exam Back exam: Present normal inspection and full ROM; Absent tenderness Neurological Exam Neurological exam: Present alert, oriented X3, CN II-XII intact and normal gait; Absent motor sensory deficit Psychiatric Psychiatric exam: Present normal affect and normal mood Skin Skin exam: Present warm and dry Medical Decision Making Medical Records Medical records reviewed: Yes I reviewed the patient's medical records. Screening: Per USPSTF and CDC recommendations, given the prevalence of disease in our region, it is our hospital?s policy to screen for HIV and viral Hepatitis for all patients aged 18 and over and those with ongoing risk factors. Shahzad Inquiry Pt receiving controlled substance: No Vital Signs: 04/20/25 16:02 04/20/25 16:12 04/20/25 16:13 Temperature 98.6 F Temperature Source Oral Pulse Rate 70 75 Pulse Rate [Left Radial] 80 Respiratory Rate 16 Blood Pressure 137/95 H 140/101 H Blood Pressure [Right Arm] 137/95 H Blood Pressure Mean [Right Arm] 109 Blood Pressure Source Automatic Cuff Blood Pressure Source [Right Arm] Automatic Cuff Blood Pressure Position Supine Blood Pressure Position [Right Arm] Supine 02 Sat by Pulse Oximetry 100 100 100 Oxygen Delivery Method Room Air Room Air 04/20/25 16:30 04/20/25 17:00 04/20/25 19:05 Temperature 98.6 F Temperature Source Oral Pulse Rate 69 61 61 Pulse Rate [Left Radial] Respiratory Rate 16 Blood Pressure 125/95 H 123/90 123/90 Blood Pressure [Right Arm] Blood Pressure Mean [Right Arm] Blood Pressure Source Automatic Cuff Blood Pressure Source [Right Arm] Blood Pressure Position Sitting Blood Pressure Position [Right Arm] 02 Sat by Pulse Oximetry 98 99 Oxygen Delivery Method Room Air Lab Data Lab results reviewed: Yes I reviewed the patient's lab results. Lab Results 04/20/25 16:00: Urine Color Yellow, Urine Appearance Clear, Urine pH 5.5, Ur Specific [place] >= 1.030, Urine Protein Trace, Urine Glucose (UA) Negative, Urine Ketones Trace, Urine Blood Negative, Urine Nitrate Negative, Urine Bilirubin Negative, Urine Urobilinogen 0.2, Ur Leukocyte Esterase Negative, Urine RBC Occasional, Urine WBC Occasional, Ur Squamous Epith Cells None, Urine Bacteria Trace, Hyaline Casts Occasional, Urine Mucus 1+ 04/20/25 16:13: WBC 6.4, RBC 4.70, Hgb 15.5, Hct 43.8, MCV 93.2, MCH 33.0 H, MCHC 35.4, RDW 11.2 L, Plt Count 252, MPV 9.4, Neut % (Auto) 55.9, Lymph % (Auto) 37.0, [place] % (Auto) 6.0, Eos % (Auto) 0.6, Baso % (Auto) 0.3, Neut # (Auto) 3.6, Lymph # (Auto) 2.4, [place] # (Auto) 0.4, Eos # (Auto) 0.0, Baso # (Auto) 0.0, Sodium 139, Potassium 4.2, Chloride 99, Carbon Dioxide 27, Anion Gap 17.2 H, BUN 20, Creatinine 0.70, Estimated Creat Clear 123, Estimated GFR 126, Est GFR ( Amer) 152, Glucose 112 H, Calcium 10.2, Total Bilirubin 0.6, AST 42, ALT 30, Alkaline Phosphatase 55, Total Protein 7.8, Albumin 5.1 H, Globulin 2.7, Albumin/Globulin Ratio 1.9 H, HCV Ab JAYDA w/Rflx PCR Qn Negative, HIV Ag/Ab Combo Qual Negative 04/20/25 16:13 04/20/25 16:13 Orders (Tests/Meds): ED MEDICATIONS Discontinued Medications Generic Name Dose Route Start Last Admin Trade Name Freq PRN Reason Stop Dose Admin Iopamidol 75 ml 04/20/25 17:23 04/20/25 17:24 Iopamidol-370 (76%);100ml Bottle IV 04/20/25 17:24 75 ml ONCE ONE Administration Sodium Chloride 10 ml 04/20/25 17:23 04/20/25 17:24 Sodium Chloride 0.9% 10ml Syr (Rad Only) IV 05/20/25 17:22 10 ml NEEDED PRN Administration Maintain IV Site ORDERS Category Date Time Status CT abdomen pelvis w con Stat Cat Scan 04/20/25 16:08 Completed Complete Blood Count Auto Diff Stat Lab 04/20/25 16:13 Completed Comprehensive Metabolic Panel Stat Lab 04/20/25 16:13 Completed HIV Combo Stat Lab 04/20/25 16:13 Completed Hepatitis C Ab Qual. W/ RFX Stat Lab 04/20/25 16:13 Completed UA [Urinalysis and Microscopic] Stat Lab 04/20/25 16:00 Completed Medical Decision Narrative: In summary, this patient is a 39-year-old male presenting to the Emergency Department for evaluation of left groin pain for the last several days. Differential diagnoses considered include but are not limited to inguinal hernia, musculoskeletal strain/sprain, colitis, diverticulitis. Ruling out the most morbid conditions drove assessment. It should be noted patient's history includes opioid dependence which may or may not be at goal therapy. This complicates all aspects of care by increasing patient's risk for morbidity. On exam, the patient has no appreciable hernia currently, but he states that it is not currently bulging out. He notes that it intermittently bulges out, especially with increases in intra-abdominal pressure. Abdominal exam is benign workup included CBC, CMP, CT abdomen pelvis with IV contrast. I independently interpreted CT scan prior to the radiologist read and noted no obvious obstructive process or large hernia. Please see their read for final interpretation. Labs were obtained that demonstrated reassuring CBC and chemistry with nothing actionable at this time. On reassessment, patient is resting calmly with benign abdominal exam. Radiology noted concerns for possible median arcuate ligament syndrome, which I notified the patient of. Ultimately, for both his symptoms that seem to be consistent with a possible hernia and this finding on CT, I feel he would benefit from outpatient follow-up with general surgery. He was given instructions for this as well as strict return precautions. He was discharged after all questions were answered Critical Care Critical Care Time Critical Care Time: No
[2025-04-20 16:12] VITALS: BP 140/101; PULSE 75; O2SAT 100
[2025-04-20 16:13] VITALS: BP 137/95; PULSE 80; RESP 16; TEMP 37; O2SAT 100; BMI 19.3
[2025-04-20 16:16] LABS: Bacteria,Urine Trace /lpf; Hyaline Casts,Urine Occasional #/lpf (0); Mucus,Urine 1+ /lpf; RBC,Urine Occasional #/hpf (0-3); WBC,Urine Occasional #/hpf (0-3)
[2025-04-20 16:23] LABS: Hematocrit 43.8 % (42.0-52.0); Hemoglobin 15.5 g/dL (14.1-18.0); Immature Granulocytes % 0.2 %; Mean Corpuscular HGB Conc 35.4 g/dL (31.8-35.4); Mean Corpuscular Hemoglobin 33.0 pg (27.0-31.2); Mean Corpuscular Volume 93.2 fl (80-94); Nucleated Red Blood Cells % 0 %; Platelet Count 252 K/mm3 (142-424); Red Blood Count 4.70 M/mm3 (4.60-6.20); Red Cell Distribution Width-SD 38.1 fL; White Blood Count 6.4 K/mm3 (4.8-10.8)
[2025-04-20 16:30] VITALS: BP 125/95; PULSE 69; O2SAT 98
[2025-04-20 16:47] LABS: Alanine Aminotransferase 30 U/L (12-78); Albumin Level 5.1 g/dl (3.5-5.0); Albumin/Globulin Ratio 1.9 (1.1-1.8); Alkaline Phosphatase 55 U/L (38-126); Anion Gap 17.2 mEq/L (5-15); Aspartate Amino Transferase 42 U/L (17-59); Bilirubin,Total 0.6 mg/dl (0.2-1.3); Blood Urea Nitrogen 20 mg/dl (9-20); Calcium 10.2 mg/dl (8.4-10.2); Carbon Dioxide 27 mmol/L (22.0-30.0); Chloride 99 mmol/L (98-107); Creatinine Clearance Estimated 123 mL/min (50-200); Creatinine,Serum 0.70 mg/dl (0.66-1.25); Estimated Glomerular Filt Rate 126 ml/min (>60); GFR (African American) 152 ML/MIN (>60); Globulin 2.7 g/dL (1.3-3.2); Glucose 112 mg/dl (74-100); Potassium 4.2 mmoL/L (3.5-5.1); Sodium 139 mmol/L (136-145); Total Protein,Serum 7.8 g/dl (6.3-8.2)
[2025-04-20 17:00] VITALS: BP 123/90; PULSE 61; O2SAT 99
[2025-04-20] MEDS: IOPAMIDOL-370 (76%);100ML BOTTLE 75 ML IV (17:24)
[2025-04-20] MEDS: SODIUM CHLORIDE 0.9% 10ML SYR (RAD ONLY) 10 ML IV (17:24)
[2025-04-20 18:11] LABS: Hepatitis C Ab Qual. W/ RFX NEGATIVE (Negative)
[2025-04-20 19:05] VITALS: BP 123/90; PULSE 61; RESP 16; TEMP 37; O2SAT 99
== END 2025-04-20 19:05 | disposition home or self-care (01) ==
PROVIDERS: Emergency Provider Emergency Medicine
DX: K40.90 Unilateral inguinal hernia, without obstruction or gangrene, not specified as recurrent (principal); I77.4 Celiac artery compression syndrome; Z87.891 Personal history of nicotine dependence
CPT/HCPCS: 74177; 80053; 81001; 85025; 86803; 87389; 99284; Q9967

== ENCOUNTER 2025-09-29 10:02 | Outpatient (CLI) | payer BC, SELFPAY ==
[2025-09-29 07:48] VITALS: BMI 22.4
--- OUTSIDE RECORDS SUMMARY | 2025-09-29 10:06 | XMS_ITS | Clinical Summary ---
Author Organization Healthcare Address [address] [place] [address] Care Team Providers Care Branch Services Manager Name Role Phone Michelle Clark APRN Primary [...] Date Smoking Tobacco: Every Day Cigarettes 1 22 Started: 2003 Smokeless Tobacco: Never Tobacco Cessation:Ready [...] of 2 - 13+ 2-dose series) 1998 [facility]- SDOH Screenings 2003 [facility]-Adult SDOH Screenings 2003 [facility]-DTaP,Tdap,and Td Vaccines (2 - Tdap) 01/23/2007 01/22/2007, 12/23/1997 [facility]-Depression Screening 01/16/2024 01/15/2023 [id number] Vaccine (3 - 2024- season) 2025 06/03/2021, 05/06/2021 [facility]-Influenza Vaccine (#1) 2025 [facility]-Zoster Vaccines (1 of 2) 2035 HPV Vaccines (No Doses Required) Completed [facility]-HIB Vaccines Aged Out No longer e [...] age to complete this topic Insurance [facility] [facility] MEDICAID Care Teams Branch Services Manager Relationship Specialty Start Date End Date Michelle Clark, ELIDA [address] [place] [id number] PCP - General Family Medicine 01/15/23
[2025-09-29 10:51] LABS: Hematocrit 39.3 % (42.0-52.0); Hemoglobin 14.1 g/dL (14.1-18.0); Immature Granulocytes % 0.2 %; Mean Corpuscular HGB Conc 35.9 g/dL (31.8-35.4); Mean Corpuscular Hemoglobin 32.9 pg (27.0-31.2); Mean Corpuscular Volume 91.6 fl (80-94); Nucleated Red Blood Cells % 0 %; Platelet Count 233 K/mm3 (142-424); Red Blood Count 4.29 M/mm3 (4.60-6.20); Red Cell Distribution Width-SD 38.4 fL; White Blood Count 6.2 K/mm3 (4.8-10.8)
[2025-09-29 10:56] LABS: Chloride 104 mmol/L (98-107); Sodium 140 mmol/L (136-145)
[2025-09-29 10:57] LABS: Potassium 4.0 mmoL/L (3.5-5.1)
[2025-09-29 10:59] LABS: Blood Urea Nitrogen 22 mg/dl (9-20)
[2025-09-29 11:00] LABS: Anion Gap 9.0 mEq/L (5-15); Calcium 10.0 mg/dl (8.4-10.2); Carbon Dioxide 31 mmol/L (22.0-30.0); Creatinine Clearance Estimated 94 mL/min (50-200); Creatinine,Serum 0.90 mg/dl (0.66-1.25); Estimated Glomerular Filt Rate 93 ml/min (>60); GFR (African American) 113 ML/MIN (>60); Glucose 95 mg/dl (74-100)
[2025-09-29 13:48] LABS: Microscopic, Urine URINE MICROSCOPIC (MICROSCOPIC)
[2025-09-29 13:52] LABS: Bilirubin,Urine Negative (Negative); Color,Urine YELLOW (Yellow); Glucose,Urine (UA) Negative (Negative); Ketones,Urine Negative (Negative); Leukocyte Esterase,Urine Negative (Negative); PH,Urine 6.0 (5.0-8.5); Protein,Urine Negative (Negative); Specific Gravity, Urine >= 1.030 (1.005-1.030); Urobilinogen,Urine 0.2 EU/dl (0.2)
[2025-09-29 14:12] LABS: Bacteria,Urine 1+ /lpf; Calcium Oxalate Crystals,Urine 1+ /lpf
== END 2025-09-29 23:59 | disposition home or self-care (01) ==
LOC: PREOP 10:04
PROVIDERS: Visit Provider Surgery
DX: Z01.812 Encounter for preprocedural laboratory examination (principal)
CPT/HCPCS: 80048; 81001; 85025